=== PATIENT | female | born 1955 | race American Indian/Alaskan Native ===

== ENCOUNTER 2019-01-12 10:35 | Day surgery (SDC) | payer BC ==
[~2019-01-12 10:35] MED LIST: NACL 0.9% 1000 ML 1,000 ML IV SCH
--- NOTE | 2019-01-12 12:18 | Anesthesia Day of Surgery ---
Anesthesia Day of Surgery - Day of Surgery Patient Examined: Yes Patient H&P Reviewed: Yes Patient is NPO: Yes
--- NOTE | 2019-01-12 12:19 | Anesthesia Consultation ---
Anesthesia Consult and Med Hx Date of service: 01/12/19 - Airway Anesthetic Teeth Evaluation: Crowns ROM Head & Neck: Adequate Mental/Hyoid Distance: Adequate Mallampati Class: Class II Intubation Access Assessment: Probably Good - Pre-Operative Health Status ASA Pre-Surgery Classification: ASA2 Proposed Anesthetic Plan: MAC - Pulmonary Hx Smoking: No Hx Sleep Apnea: No - Cardiovascular System Hx Hypertension: Yes - Gastrointestinal Hx Gastroesophageal Reflux Disease: Yes - Other Systems Hx Alcohol Use: Yes Hx Cancer: Yes (RIGHT BREAST)
[2019-01-12] MEDS ORDERED: DIPRIVAN 10 MG/ML IV ONE (15:16)
[2019-01-12] MEDS ORDERED: SUBLIMAZE ONE (15:19)
[2019-01-12] MEDS ORDERED: VERSED ONE (15:19)
--- NOTE | 2019-01-12 15:52 | Operative Report ---
Operative Report Operative Report: Procedure: Colonoscopy with multiple hot biopsy polypectomies and polyp ablations. Attending physician: Chivo Avelar MD Manager Transplant: Chivo Avelar MD Indication: Patient is a 63-year-old female who presents for colonoscopy because of personal history of colon polyps and family history of colorectal cancer. However colonoscopy was 6 years ago.. A colonoscopy serves to evaluate patient so that treatment may be directed based on the findings. Consent: Informed consent was obtained after advising the patient and family regarding nature of this procedure, its indications, potential benefits as well as possible complications including but not limited to bleeding perforation and adverse reaction to medication, infection as well as other cardiopulmonary complications. An informed written and verbal consent was then obtained after due opportunity was provided for questions and answers. Monitoring: Patient was monitored continuously with pulse oximetry and electrocardiographic recordings as well as blood pressure recordings. Vital signs remained stable throughout this procedure with no untoward events. Preoperative assessment: Patient was assessed immediately prior to this procedure for capacity to tolerate monitored anesthesia care and moderate sedation as well as general anesthesia. Patient's ASA classification is 2, Mallampati class is 2, Hyomental distance is 3. Instrument: [employer] video colonoscope Medications: Propofol given intravenously in divided doses. For details please refer to anesthesia records. Description of procedure: Patient was placed in the left lateral decubitus position after achieving sedation, a digital rectal examination was performed following which the colonoscope was introduced into the anal verge and advanced to the cecum which was identified by the ileocecal valve, the appendiceal orifice, as well as by the cecal strap and direct transillumination. The colonoscope was subsequently withdrawn with careful inspection of all mucosal surfaces. Patient tolerated this procedure well and was subsequently taken to the recovery room. The following findings were noted. Findings: Patient had a polyp in the hepatic flexure which was removed by hot biopsy polypectomy. It was flat and measured approximate 7 mm. Patient also had 6 polyps in the sigmoid colon which measured between 5-8 mm. All polyps were flat. They were removed by hot biopsy polypectomy and another diminutive polyp was ablated . The rest of the colon to the cecum was normal. On the retroflex view at the anal verge, patient had internal hemorrhoids . Impression: Normal colonoscopy. Internal hemorrhoids. Plan: Follow pathology report. High-fiber diet. Prn stool softeners. Repeat colonoscopy in 1 year, due to multiple polyps and family history of colon cancer.
--- NOTE | 2019-01-12 15:52 | Discharge Summary ---
Short Stay Discharge Plan Activity: advance as tolerated Weight Bearing Status: Weight Bear as Tolerated Diet: regular Additional Instructions: Post Sedation D/C Instructions When you return home you may resume your regular diet unless otherwise directed. -Go directly home from the hospital and rest quietly. You may resume normal activities tomorrow. -Do NOT drive, return to work, operate any machinery or make any important personal or business decisions today. -Do NOT drink any alcohol or take nerve or sleeping drugs. They add to the effects of the medicine still present in your body. FOLLOW UP WITH DR. HALE IN 1-2 WEEKS FOR RESULTS OF BIOPSIES AND TODAY'S VISIT REPEAT COLONOSCOPY IN 1 YR Follow up with: CARMINE ODOM MD [Primary Care Provider] - 7 Days
[2019-01-12 16:24] VITALS: BP 118/62
[2019-01-12] MEDS ORDERED: WATER FOR IRRIG STERILE ONE (16:33)
== END 2019-01-12 10:36 | disposition home or self-care (01) ==
LOC: GIO 10:35
PROVIDERS: ATTEND Internal Medicine Gastroenterology
DX: Z12.11 Encounter for screening for malignant neoplasm of colon (principal); D12.3 Benign neoplasm of transverse colon; K63.5 Polyp of colon; K64.8 Other hemorrhoids; E78.00 Pure hypercholesterolemia, unspecified; I10 Essential (primary) hypertension; K21.9 Gastro-esophageal reflux disease without esophagitis; M19.90 Unspecified osteoarthritis, unspecified site; Z91.040 Latex allergy status; Z88.5 Allergy status to narcotic agent; Z79.899 Other long term (current) drug therapy; Z85.3 Personal history of malignant neoplasm of breast; Z90.11 Acquired absence of right breast and nipple; Z90.710 Acquired absence of both cervix and uterus; Z72.89 Other problems related to lifestyle; Z98.890 Other specified postprocedural states; Z88.8 Allergy status to other drugs, medicaments and biological substances
CPT/HCPCS: 45384; 88305; J2250; J2704; J3010; J7030